=== PATIENT | male | born 1955 | race Caucasian/White ===

== ENCOUNTER → 2017-02-19 | Outpatient (CLI) | payer BC | END | disposition home or self-care (01) | LOC: CVU 06:50 | PROVIDERS: ATTEND Internal Medicine Cardiovascular Disease | DX: I42.2 Other hypertrophic cardiomyopathy (principal) | CPT/HCPCS: 93306 ==

== ENCOUNTER 2017-02-28 10:18 | Day surgery (SDC) | payer BC ==
[~2017-02-28] VITALS: Ht 175.3 cm; Wt 89.5 kg
[2017-02-28 10:45] VITALS: BP 137/107
[2017-02-28] MEDS ORDERED: SITA1TAB5 PO (11:13)
[2017-02-28] MEDS ORDERED: LOVA40TA2 PO (11:13)
[2017-02-28] MEDS ORDERED: LISI1TAB5 PO (11:13)
[2017-02-28] MEDS ORDERED: DAPA5TAB PO (11:13)
[2017-02-28] MEDS ORDERED: OMEG-13 PO (11:13)
[2017-02-28] MEDS ORDERED: ASPI-496 PO (11:13)
[2017-02-28] MEDS ORDERED: ATEN50TA41 PO (11:13)
[2017-02-28] MEDS ORDERED: CHOL200012 PO (11:13)
[2017-02-28] MEDS ORDERED: OMEP-110 PO (11:13)
[2017-02-28] MEDS ORDERED: MULT-208 PO (11:13)
[2017-02-28 11:15] LABS: BLOOD UREA NITROGEN 18 mg/dL (7-18)
[2017-02-28 11:16] LABS: ASPARTATE AMINO TRANSFERASE 11 U/L (15-37)
[2017-02-28] MEDS ORDERED: VERAPAMIL 2.5 MG/ML, 2ML ONE (12:14)
[2017-02-28] MEDS ORDERED: NITROGLYCERIN 5 MG/ML, 10ML ONE (12:14)
[2017-02-28] MEDS ORDERED: FENTANYL PF 100 MCG/2ML ONE (12:14)
[2017-02-28] MEDS ORDERED: MIDAZOLAM 1 MG/ML, 5ML ONE (12:14)
[2017-02-28] MEDS ORDERED: HEPARIN 1,000 UNITS/ML, 10ML ONE (12:15)
[2017-02-28] MEDS ORDERED: BIVALIRUDIN 250 MG ONE (12:15)
[2017-02-28] MEDS ORDERED: LIDOCAINE 2%, 20ML ONE (12:15)
== END 2017-02-28 16:30 ==
LOC: CACL 10:18
PROVIDERS: ATTEND Internal Medicine Cardiovascular Disease
DX: I25.10 Atherosclerotic heart disease of native coronary artery without angina pectoris (principal); I51.0 Cardiac septal defect, acquired; E11.9 Type 2 diabetes mellitus without complications; E78.5 Hyperlipidemia, unspecified
CPT/HCPCS: 36415; 80053; 85025; 85610; 85730; 93460; 99156; 99157; C1769; C1894; J1644; J2250; J3010; J3490; Q9967; J0583

== ENCOUNTER → 2018-09-30 | Outpatient (CLI) | payer BC ==
[~2018-09-30] MED LIST: ASPI-496 PO; ATEN50TA41 PO; CHOL200074 PO; DAPA5TAB PO; LISI1TAB5 PO; LOVA40TA2 PO; MULT-208 PO; OMEG-13 PO; OMEP-110 PO; SITA1TAB5 PO
== END | disposition home or self-care (01) ==
LOC: CFH 09:26
PROVIDERS: ATTEND Internal Medicine Cardiovascular Disease
DX: I08.3 Combined rheumatic disorders of mitral, aortic and tricuspid valves (principal); I42.2 Other hypertrophic cardiomyopathy; I49.9 Cardiac arrhythmia, unspecified; E11.9 Type 2 diabetes mellitus without complications; E78.5 Hyperlipidemia, unspecified; I25.2 Old myocardial infarction
CPT/HCPCS: 93306